=== PATIENT | male | born 1950 | race Caucasian/White ===

== ENCOUNTER 2017-12-31 08:57 | Day surgery (SDC) | payer OTHER ==
[~2017-12-31] VITALS: Ht 182.9 cm; Wt 104.3 kg
[~2017-12-31 08:57] MED LIST: TRANDOLAPRIL4 MG PO
[2017-12-31 09:34] VITALS: BP 143/77
[2017-12-31 09:55] LABS: HEMATOCRIT 42.5 % (38.0-50.0); HEMOGLOBIN 14.3 G/DL (12.5-16.6); MCH 29.4 PG (29.0-34.0); MCHC 33.6 G/DL (30.0-36.0); MCV 87.4 FL (86-99); PLATELET COUNT 249 K/uL (156-360); RBC DIS.WIDTH-CV 12.9 % (11.8-14.6); RBC DIS.WIDTH-SD 41.7 % (39-53); RED BLOOD COUNT 4.86 M/uL (4.00-5.50); WHITE BLOOD COUNT 9.1 K/uL (4.1-10.2)
[2017-12-31 10:15] LABS: APPEARANCE CLEAR ((CLEAR)); BILIRUBIN NEGATIVE; BLOOD NEGATIVE; COLOR YELLOW ((YELLOW)); GLUCOSE (STRIP) NEGATIVE; KETONES NEGATIVE; LEUKOCYTES NEGATIVE; NITRITE NEGATIVE; PROTEIN (STRIP) NEGATIVE; SPECIFIC GRAVITY 1.024 (1.000-1.030); UROBILINOGEN 0.2 MG/DL (0.2-1.0)
[2017-12-31 11:15] LABS: ALBUMIN 4.2 G/DL (3.2-4.8); CHLORIDE 105 MEQ/L (99-109); POTASSIUM 4.2 MEQ/L (3.7-5.4); SODIUM 137 MEQ/L (136-147); TOTAL BILIRUBIN 0.6 MG/DL (0.0-1.0)
[2017-12-31 11:21] LABS: ALKALINE PHOSPHATASE 53 IU/L (3-129); ALT (GPT) 22 IU/L (3-49); AST (GOT) 17 IU/L (2-34); CREATININE 0.7 MG/DL (0.6-1.3); GFR ESTIMATE (CALCULATED) > 59 mL/min/ (58.99-99999); GLUCOSE 104 mg/dL (70-99); TOTAL PROTEIN 6.9 G/DL (6.4-8.3); UREA NITROGEN (BUN) 19 mg/dL (9-23)
[2017-12-31] MEDS ORDERED: COLACE100 MG PO (15:04)
[2017-12-31] MEDS ORDERED: PERCOCET 5/31 TABLET PO (15:04)
[2017-12-31 16:38] VITALS: BP 140/80
[2017-12-31 17:37] VITALS: BP 148/79
[2017-12-31 18:49] VITALS: BP 159/85
== END 2017-12-31 18:55 | disposition home or self-care (01) ==
LOC: SDC 08:57
PROVIDERS: Surgery
PROC: 0YUA4JZ Supplement Bilateral Inguinal Region with Synthetic Substitute, Percutaneous Endoscopic Approach (ICD-10-PCS; principal; 2017-12-31)
DX: K40.20 Bilateral inguinal hernia, without obstruction or gangrene, not specified as recurrent (principal); D17.6 Benign lipomatous neoplasm of spermatic cord; I10 Essential (primary) hypertension; E78.5 Hyperlipidemia, unspecified
CPT/HCPCS: 80053; 81003; 85027; C1727; C1781; J0690; J1170; J1885; J2001; J2405; J2710; J3010; J3475